=== PATIENT | male | born 1970 ===

== ENCOUNTER 2017-03-05 18:01 | Inpatient (IN) | payer OTHER ==
[2017-03-05 18:08] VITALS: BMI 23.8
--- NOTE | 2017-03-05 20:55 | HP ---
CIWA Score - CIWA Score Nausea/Vomitin-No Nausea/No Vomiting Muscle Tremors: 4-Moderate,w/Arms Extend Anxiety: 4-Mod. Anxious/Guarded Agitation: 4-Moderately Restless Paroxysmal Sweats: 3 Orientation: 0-Oriented Tacttile Disturbances: 0-None Auditory Disturbances: 0-None Visual Disturbances: 0-None Headache: 3-Moderate CIWA-Ar Total Score: 18 Admission ROS BHS - HPI Chief Complaint: C/O ALCOHOL DEPENDENCE WITH WITHDRAWAL SX. SEEKING DETOX TXMENT Allergies/Adverse Reactions: Allergies Allergy/AdvReac Type Severity Reaction Status Date / Time fish derived Allergy Intermediate Swelling Verified 11/24/14 17:01 shellfish derived Allergy Intermediate Swelling Verified 11/24/14 17:01 No Known Drug Allergies Allergy Verified 11/24/14 17:01 seafood Allergy Intermediate Swelling Uncoded 11/24/14 15:58 History of Present Illness: 46 Y.O. MALE WITH OVER 20 YEAR HX/O ALCOHOL DEPENDENCE ADMITTED TO DETOX. REFERRED BY [facility]. DENIES ANY RECENT DETOX/REHAB SERVICES. REPORTS LONGEST CLEAN TIME 1.5 YEARS. RELAPSING 18 MONTHS AGO. HE IS CURRENTLY ON MMTP 110 MG LDM TODAY FROM [facility]. PENDING VERIFICATION Exam Limitations: No Limitations - Ebola screening Have you traveled outside of the country in the last 21 days: No Have you had contact with anyone from an Ebola affected area: No Have you been sick,other than usual withdrawal symptoms: No Do you have a fever: No - Review of Systems Constitutional: Chills, Loss of Appetite, Night Sweats, Changes in sleep EENT: reports: Dental Problems (MISSING TEETH) Respiratory: reports: No Symptoms reported Cardiac: reports: No Symptoms Reported GI: reports: Poor Appetite : reports: No Symptoms Reported Musculoskeletal: reports: No Symptoms Reported Integumentary: reports: No Symptoms Reported Neuro: reports: No Symptoms reported Endocrine: reports: No Symptoms Reported Hematology: reports: No Symptoms Reported Psychiatric: reports: Anxious Other Systems: Reviewed and Negative Patient History - Patient Medical History Hx Anemia: No Hx Asthma: No Hx Chronic Obstructive Pulmonary Disease (COPD): No Hx Cancer: No Hx Cardiac Disorders: No Hx Congestive Heart Failure: No Hx Hypertension: No Hx Hypercholesterolemia: No Hx Pacemaker: No HX Cerebrovascular Accident: No Hx Seizures: No Hx Dementia: No Hx Diabetes: No Hx Gastrointestinal Disorders: No Hx Liver Disease: No Hx Genitourinary Disorders: No Hx Sexually Transmitted Disorders: No Hx Renal Disease (ESRD): No Hx Thyroid Disease: No Hx Human Immunodeficiency Virus (HIV): No Hx Hepatitis C: No Hx Depression: Yes (PROZAC LAST TAKEN 4 MONTHS AGO) Hx Suicide Attempt: No Hx Bipolar Disorder: No Hx Schizophrenia: No - Patient Surgical History Past Surgical History: No Hx Neurologic Surgery: No Hx Cataract Extraction: No Hx Cardiac Surgery: No Hx Lung Surgery: No Hx Breast Surgery: No Hx Breast Biopsy: No Hx Abdominal Surgery: No Hx Appendectomy: No Hx Cholecystectomy: No Hx Genitourinary Surgery: No Hx Section: No Hx Orthopedic Surgery: No Anesthesia Reaction: No - PPD History Previous Implant?: Yes Documented Results: Negative w/o proof Implanted On Prior R Admission?: No Date: 11/26/14 PPD to be Administered?: Yes - Smoking Cessation Smoking history: Current every day smoker Have you smoked in the past 12 months: Yes Aproximately how many cigarettes per day: 40 Cigars Per Day: 0 Hx Chewing Tobacco Use: No Initiated information on smoking cessation: Yes 'Breaking Loose' booklet given: 03/05/17 - Substance & Tx. History Hx Alcohol Use: Yes Hx Substance Use: Yes Substance Use Type: Alcohol, Cocaine, Tranquilizers Hx Substance Use Treatment: Yes ([facility]) - Substances Abused BEER Route: Oral Frequency: Daily Amount used: 2/40 OZ Age of first use: 23 Date of Last Use: 03/05/17 ATIVAN/KLONOPINS Route: Oral Frequency: 1-2 times per week Amount used: 2MG Age of first use: 45 Date of Last Use: 03/04/17 COCAINE Route: Inhalation Frequency: 1-3 times last 30 days Amount used: DIIME Age of first use: 27 Date of Last Use: 03/04/17 Family Disease History - Family Disease History Family Disease History: Diabetes: Father Admission Physical Exam BHS - Vital Signs Vital Signs: Vital Signs - 24 hr 03/05/17 18:03 Temperature 97 F L Pulse Rate 69 Respiratory 20 Rate Blood Pressure 113/77 - Physical General Appearance: Yes: Alcohol on Breath, Tremorous, Anxious HEENTM: Yes: EOMI, Normocephalic, Normal Voice, MARY, Other (POOR DENTITION) Respiratory: Yes: Chest Non-Tender, Lungs Clear, Normal Breath Sounds, No Respiratory Distress, No Accessory Muscle Use Neck: Yes: No masses,lesions,Nodules, Trachea in good position Breast: Yes: Breast Exam Deferred Cardiology: Yes: Regular Rhythm, Regular Rate, S1, S2 Abdominal: Yes: Normal Bowel Sounds, Non Tender, Soft Genitourinary: Yes: Within Normal Limits Back: Yes: Normal Inspection Musculoskeletal: Yes: full range of Motion, Gait Steady Extremities: Yes: Normal Capillary Refill, Normal Range of Motion, Non-Tender, Tremors Neurological: Yes: Fully Oriented, Alert, Motor Strength 5/5 Integumentary: Yes: Normal Color, Dry, Warm Lymphatic: Yes: Within Normal Limits - Diagnostic (1) Methadone maintenance therapy patient Current Visit: Yes Status: Chronic (2) Nicotine dependence Current Visit: Yes Status: Chronic Qualifiers: Nicotine product type: cigarettes (3) Alcohol dependence with uncomplicated withdrawal Current Visit: Yes Status: Chronic (4) Uncomplicated opioid dependence Current Visit: Yes Status: Chronic (5) Sedative, hypnotic or anxiolytic dependence with withdrawal, uncomplicated Current Visit: Yes Status: Chronic (6) Cocaine dependence, uncomplicated Current Visit: Yes Status: Chronic Cleared for Admission [facility] - Detox or Rehab [facility] Level of Care: Medically Managed Detox Regimen/Protocol: Librium [facility] Breath Alcohol Content Breath Alcohol Content: 0.132 Urine Drug Screen - Results Drug Screen Negative: No Urine Drug Screen Results: SHELBI-Cocaine, OPI-Opiates, BZO-Benzodiazepines, MTD- Methadone
[2017-03-05] MEDS ORDERED: IBUPROFEN 400 MG TABLET (FP) PO PRN (21:00)
[2017-03-05] MEDS ORDERED: hydrOXYzine PAMOATE 50 MG CAPSULE (FP) PO PRN (21:00)
[2017-03-05] MEDS ORDERED: MAGNESIUM HYDROX 2400MG/30ML ORAL SUSPENSION 30 ML CUP PO PRN (21:00)
[2017-03-05] MEDS ORDERED: chlordiazePOXIDE HCL 25 MG CAPSULE PO PRN (21:00)
[2017-03-05] MEDS ORDERED: guaiFENesin/D-METHORPHAN HB 10 ML UNIT-DOSE CUPS PO PRN (21:00)
[2017-03-05] MEDS ORDERED: P-EPHED 60MG/TRIPROLIDI 2.5MG TABLET PO PRN (21:00)
[2017-03-05] MEDS ORDERED: MAG HYDROX/AL HYDROX/SIMETH 30 ML UNIT-DOSE CUP PO PRN (21:00)
[2017-03-05] MEDS ORDERED: diphenhydrAMINE HCL 50 MG CAPSULE PO PRN (21:00)
[2017-03-05] MEDS ORDERED: LOPERAMIDE HCL 2 MG CAPSULE PO PRN (21:00)
[2017-03-05] MEDS ORDERED: NICOTINE POLACRILEX 2 MG GUM BC PRN (21:00)
[2017-03-05] MEDS ORDERED: ACETAMINOPHEN 325 MG TABLET (FP) PO PRN (21:00)
[2017-03-05] MEDS ORDERED: MENTHOL/PHENOL 1 EACH UD MM PRN (21:00)
[2017-03-05] MEDS ORDERED: MAGNESIUM CITRATE 300 ML BOTTLE PO PRN (21:00)
[2017-03-05] MEDS: THIAMINE HCL 100 MG TABLET (FP) PO SCH (22:59)
[2017-03-05] MEDS: chlordiazePOXIDE HCL 25 MG CAPSULE PO SCH (22:59)
[2017-03-05] MEDS: NICOTINE 21 MG/24 HOURS TOPICAL PATCH TD SCH (23:05)
[2017-03-05 23:43] LABS: URINE APPEARANCE CLOUDY; URINE BILIRUBIN NEGATIVE (NEGATIVE); URINE BLOOD NEGATIVE (NEGATIVE); URINE COLOR YELLOW; URINE GLUCOSE (UA) NEGATIVE (NEGATIVE); URINE KETONE NEGATIVE (NEGATIVE); URINE LEUK ESTERASE TRACE (NEGATIVE); URINE NITRITE NEGATIVE (NEGATIVE); URINE PROTEIN NEGATIVE (NEGATIVE); URINE UROBILINOGEN NEGATIVE mg/dL (0.2-1.0)
[2017-03-05 23:48] LABS: URINE BACTERIA RARE /hpf (NONE SEEN); URINE MUCUS RARE; URINE RBC 3 /hpf (0-3); URINE WBC 4 /hpf (3-5)
[2017-03-06] MEDS: chlordiazePOXIDE HCL 25 MG CAPSULE PO SCH ×4 (06:08→22:25)
[2017-03-06] MEDS ORDERED: METHADONE HCL 10 MG TABLET PO SCH (09:00)
[2017-03-06] MEDS ORDERED: ZOLPIDEM TARTRATE 5 MG TABLET PO PRN (09:11)
--- NOTE | 2017-03-06 09:53 | CONSULT ---
[facility] - Data Date of interview: 03/06/17 Admission source: [facility] Identifying data: This is 46 years old male with no psychiatric hospitalization history intoxicayed with: Alcohol, Cocaine, Methadone, Opioids, Xanax and Nicotine Substance Abuse History: - Smoking Cessation. Smoking history: Current every day smoker. Have you smoked in the past 12 months: Yes. Aproximately how many cigarettes per day: 40. Cigars Per Day: 0. Hx Chewing Tobacco Use: No. Initiated information on smoking cessation: Yes. 'Breaking Loose' booklet given : 03/05/17. - Substance & Tx. History. Hx Alcohol Use: Yes. Hx Substance Use : Yes. Substance Use Type: Alcohol, Cocaine, Tranquilizers. Hx Substance Use Treatment: Yes ([facility]). - Substances Abused. BEER. Route: Oral. Frequency: Daily. Amount used: 2/40 OZ. Age of first use: 23. Date of Last Use: 03/05/17. ATIVAN/KLONOPINS. Route: Oral. Frequency: 1-2 times per week. Amount used: 2MG. Age of first use: 45. Date of Last Use: 03/04/17. * * COCAINE. Route: Inhalation. Frequency: 1-3 times last 30 days. Amount used : DIIME. Age of first use: 27. Date of Last Use: 03/04/17 Medical History: Denies significant medical problem Psychiatric History: Patient reprots history of MDD, reports taking prior to admission: Prozac 20mg poqd. Ambien 10mg po qhs Physical/Sexual Abuse/Trauma History: Denies Additional Comment: Prozac 20mg poqd. Ambien 10mg po qhs Mental Status Exam - Mental Status Exam Alert and Oriented to: Person Cognitive Function: Fair Patient Appearance: Unkempt Mood: Sad Affect: Flat Patient Behavior: Sedated Speech Pattern: Delayed Voice Loudness: Normal Thought Process: Circumstantial Thought Disorder: Being Controlled Hallucinations: Denies Suicidal Ideation: Denies Homicidal Ideation: Denies Insight/Judgement: Fair Sleep: Difficulty falling asleep Appetite: Fair Muscle strength/Tone: Normal Gait/Station: Normal Additional Comments: Prozac 20mg poqd. Ambien 10mg po qhs Psychiatric Findings - Problem List ([place] 1, 2,3) (1) Alcohol dependence with uncomplicated withdrawal Current Visit: Yes Status: Chronic (2) Cocaine dependence, uncomplicated Current Visit: Yes Status: Chronic (3) Methadone maintenance therapy patient Current Visit: Yes Status: Chronic (4) Nicotine dependence Current Visit: Yes Status: Chronic Qualifiers: Nicotine product type: cigarettes (5) Sedative, hypnotic or anxiolytic dependence with withdrawal, uncomplicated Current Visit: Yes Status: Chronic (6) Alcohol dependence Current Visit: No Status: Chronic (7) Opioid dependence on agonist therapy Current Visit: No Status: Chronic (8) Drug-induced mood disorder Current Visit: Yes Status: Acute - Initial Treatment Plan Initial Treatment Plan: Prozac 20mg poqd. Ambien 10mg po qhs
[2017-03-06 10:00] LABS: MCH 29.6 pg (25.7-33.7); MCHC 32.1 g/dl (32.0-35.9); MEAN CELL VOLUME 92.2 fl (80-96); MEAN PLT VOLUME 9.4 fl (7.5-11.1); PLATELET COUNT 225 K/MM3 (134-434); RDW 13.8 % (11.9-15.9); WHITE BLOOD COUNT 8.3 K/mm3 (4.0-10.0)
[2017-03-06] MEDS ORDERED: METHADONE HCL 10 MG TABLET ONE (10:01)
[2017-03-06] MEDS ORDERED: METHADONE HCL 40 MG DISPERSABLE TABLET ONE (10:01)
--- NOTE | 2017-03-06 10:45 | EKG ---
Test Reason : Blood Pressure : / mmHG Vent. Rate : 062 BPM Atrial Rate : 062 BPM P-R Int : 172 ms QRS Dur : 098 ms QT Int : 432 ms P-R-T Axes : 045 052 067 degrees QTc Int : 438 ms NORMAL SINUS RHYTHM NORMAL ECG NO PREVIOUS ECGS AVAILABLE Confirmed by MARKY ARZOLA, MARÍA ELENA ([id number]) on 03/06/2017 10:44:43 AM Referred By: Nick Jones Confirmed By:MARÍA ELENA NEGRO MD
[2017-03-06] MEDS: PRENATAL VITAMINS W/ FOLIC ACID TABLET (FP) PO SCH (10:51)
[2017-03-06] MEDS: NICOTINE 21 MG/24 HOURS TOPICAL PATCH TD SCH (10:51)
[2017-03-06] MEDS: FLUoxetine HCL 20 MG CAPSULE (FP) PO SCH (10:51)
[2017-03-06] MEDS: METHADONE 80 MG, METHADONE 30 MG PO SCH (10:52)
[2017-03-06 10:53] LABS: ALBUMIN 3.3 g/dl (3.4-5.0); ALK PHOS 61 U/L (45-117); ANION GAP 9 (8-16); CALCIUM 8.3 mg/dL (8.5-10.1); CO2 30 mmol/L (21-32); CREATININE 0.6 mg/dL (0.7-1.3); GLUCOSE,RANDOM 88 mg/dL (74-106); SGOT/AST 35 U/L (15-37); SGPT/ALT 33 U/L (12-78); TOT PROT 6.4 g/dl (6.4-8.2)
--- NOTE | 2017-03-06 11:35 | PN ---
S CIWA - CIWA Score Nausea/Vomitin Muscle Tremors: 3 Anxiety: 3 Agitation: 2 Paroxysmal Sweats: 1-Minimal Palms Moist Orientation: 0-Oriented Tacttile Disturbances: 1-Very Mild Itch/Numbness Auditory Disturbances: 1-Very Mild Visual Disturbances: 1-Very Mild Sensitivity Headache: 2-Mild CIWA-Ar Total Score: 17 BHS Progress Note (SOAP) Subjective: ALERT,IRRITABLE,ANXIOUS,INTERRUPTED SLEEP,TREMOR,PAIN IN THE BODY AND BACK Objective: 03/06/17 11:33 Vital Signs Temperature 98.0 F 03/06/17 06:52 Pulse Rate 54 L 03/06/17 06:52 Respiratory Rate 20 03/06/17 06:52 Blood Pressure 145/74 03/06/17 06:52 O2 Sat by Pulse Oximetry (%) EKG NSR,NORMAL ECG Laboratory Last Values WBC 8.3 K/mm3 (4.0-10.0) 03/06/17 07:00 RBC 4.23 M/mm3 (4.00-5.60) 03/06/17 07:00 Hgb 12.5 GM/dL (11.7-16.9) 03/06/17 07:00 Hct 38.9 % (35.4-49) 03/06/17 07:00 MCV 92.2 fl (80-96) 03/06/17 07:00 MCH 29.6 pg (25.7-33.7) 03/06/17 07:00 MCHC 32.1 g/dl (32.0-35.9) 03/06/17 07:00 RDW 13.8 % (11.9-15.9) 03/06/17 07:00 Plt Count 225 K/MM3 (134-434) 03/06/17 07:00 MPV 9.4 fl (7.5-11.1) 03/06/17 07:00 Sodium 142 mmol/L (136-145) 03/06/17 07:00 Potassium 4.3 mmol/L (3.5-5.1) 03/06/17 07:00 Chloride 103 mmol/L (98-107) 03/06/17 07:00 Carbon Dioxide 30 mmol/L (21-32) 03/06/17 07:00 Anion Gap 9 (8-16) 03/06/17 07:00 BUN 18 mg/dL (7-18) D 03/06/17 07:00 Creatinine 0.6 mg/dL (0.7-1.3) L 03/06/17 07:00 Creat Clearance w eGFR > 60 (>60) 03/06/17 07:00 Random Glucose 88 mg/dL (74-106) 03/06/17 07:00 Calcium 8.3 mg/dL (8.5-10.1) L 03/06/17 07:00 Total Bilirubin 1.0 mg/dL (0.2-1.0) D 03/06/17 07:00 AST 35 U/L (15-37) D 03/06/17 07:00 ALT 33 U/L (12-78) 03/06/17 07:00 Alkaline Phosphatase 61 U/L (45-117) 03/06/17 07:00 Total Protein 6.4 g/dl (6.4-8.2) 03/06/17 07:00 Albumin 3.3 g/dl (3.4-5.0) L 03/06/17 07:00 Urine Color Yellow 03/05/17 23:00 Urine Appearance Cloudy 03/05/17 23:00 Urine pH 5.0 (5.0-8.0) 03/05/17 23:00 Ur Specific Colon >= 1.030 (1.005-1.025) H 03/05/17 23:00 Urine Protein Negative (NEGATIVE) 03/05/17 23:00 Urine Glucose (UA) Negative (NEGATIVE) 03/05/17 23:00 Urine Ketones Negative (NEGATIVE) 03/05/17 23:00 Urine Blood Negative (NEGATIVE) 03/05/17 23:00 Urine Nitrite Negative (NEGATIVE) 03/05/17 23:00 Urine Bilirubin Negative (NEGATIVE) 03/05/17 23:00 Urine Urobilinogen Negative mg/dL (0.2-1.0) 03/05/17 23:00 Urine RBC 3 /hpf (0-3) 03/05/17 23:00 Urine WBC 4 /hpf (3-5) 03/05/17 23:00 Ur Epithelial Cells Many /hpf (FEW) 03/05/17 23:00 Urine Bacteria Rare /hpf (NONE SEEN) 03/05/17 23:00 Urine Mucus Rare 03/05/17 23:00 03/06/17 11:34 LABS PENDING Assessment: 03/06/17 11:34 WITHDRAWAL SYMPTOM Plan: CONTINUE DETOX
[2017-03-06] MEDS ORDERED: FLU VACCINE QUAD 60 MCG/0.5 ML (MDV 17-18) IM ONE (12:00)
[2017-03-06 12:21] LABS: HIV 1 & 2 AB NEGATIVE; HIV 1 AGp24 NEGATIVE
[2017-03-06] MEDS: THIAMINE HCL 100 MG TABLET (FP) PO SCH (22:24)
[2017-03-06] MEDS: ZOLPIDEM TARTRATE 10 MG TABLET (PARK CARE ONLY) PO PRN (22:26)
[2017-03-07] MEDS ORDERED: METHADONE HCL 40 MG DISPERSABLE TABLET ONE (04:37)
[2017-03-07] MEDS ORDERED: METHADONE HCL 10 MG TABLET ONE (04:38)
[2017-03-07] MEDS: chlordiazePOXIDE HCL 25 MG CAPSULE PO SCH ×3 (05:25→17:23)
[2017-03-07] MEDS: METHADONE 80 MG, METHADONE 30 MG PO SCH (05:25)
[2017-03-07] MEDS: FLUoxetine HCL 20 MG CAPSULE (FP) PO SCH (10:34)
[2017-03-07] MEDS: PRENATAL VITAMINS W/ FOLIC ACID TABLET (FP) PO SCH (10:34)
[2017-03-07] MEDS: NICOTINE 21 MG/24 HOURS TOPICAL PATCH TD SCH (10:34)
--- NOTE | 2017-03-07 11:47 | PN ---
S CIWA - CIWA Score Nausea/Vomitin Muscle Tremors: 3 Anxiety: 3 Agitation: 2 Paroxysmal Sweats: 1-Minimal Palms Moist Orientation: 0-Oriented Tacttile Disturbances: 1-Very Mild Itch/Numbness Auditory Disturbances: 0-None Visual Disturbances: 0-None Headache: 2-Mild CIWA-Ar Total Score: 15 S Progress Note (SOAP) Subjective: alert,irritable,anxious,interrupted sleep Objective: 03/07/17 11:45 Vital Signs Temperature 97.3 F L 03/07/17 06:00 Pulse Rate 46 L 03/07/17 06:00 Respiratory Rate 16 03/07/17 06:00 Blood Pressure 144/92 03/07/17 06:00 O2 Sat by Pulse Oximetry (%) 03/07/17 11:46 Vital Signs Temperature 97.3 F L 03/07/17 06:00 Pulse Rate 46 L 03/07/17 06:00 Respiratory Rate 16 03/07/17 06:00 Blood Pressure 144/92 03/07/17 06:00 O2 Sat by Pulse Oximetry (%) Laboratory Last Values WBC 8.3 K/mm3 (4.0-10.0) 03/06/17 07:00 RBC 4.23 M/mm3 (4.00-5.60) 03/06/17 07:00 Hgb 12.5 GM/dL (11.7-16.9) 03/06/17 07:00 Hct 38.9 % (35.4-49) 03/06/17 07:00 MCV 92.2 fl (80-96) 03/06/17 07:00 MCH 29.6 pg (25.7-33.7) 03/06/17 07:00 MCHC 32.1 g/dl (32.0-35.9) 03/06/17 07:00 RDW 13.8 % (11.9-15.9) 03/06/17 07:00 Plt Count 225 K/MM3 (134-434) 03/06/17 07:00 MPV 9.4 fl (7.5-11.1) 03/06/17 07:00 Sodium 142 mmol/L (136-145) 03/06/17 07:00 Potassium 4.3 mmol/L (3.5-5.1) 03/06/17 07:00 Chloride 103 mmol/L (98-107) 03/06/17 07:00 Carbon Dioxide 30 mmol/L (21-32) 03/06/17 07:00 Anion Gap 9 (8-16) 03/06/17 07:00 BUN 18 mg/dL (7-18) D 03/06/17 07:00 Creatinine 0.6 mg/dL (0.7-1.3) L 03/06/17 07:00 Creat Clearance w eGFR > 60 (>60) 03/06/17 07:00 Random Glucose 88 mg/dL (74-106) 03/06/17 07:00 Calcium 8.3 mg/dL (8.5-10.1) L 03/06/17 07:00 Total Bilirubin 1.0 mg/dL (0.2-1.0) D 03/06/17 07:00 AST 35 U/L (15-37) D 03/06/17 07:00 ALT 33 U/L (12-78) 03/06/17 07:00 Alkaline Phosphatase 61 U/L (45-117) 03/06/17 07:00 Total Protein 6.4 g/dl (6.4-8.2) 03/06/17 07:00 Albumin 3.3 g/dl (3.4-5.0) L 03/06/17 07:00 Urine Color Yellow 03/05/17 23:00 Urine Appearance Cloudy 03/05/17 23:00 Urine pH 5.0 (5.0-8.0) 03/05/17 23:00 Ur Specific [place] >= 1.030 (1.005-1.025) H 03/05/17 23:00 Urine Protein Negative (NEGATIVE) 03/05/17 23:00 Urine Glucose (UA) Negative (NEGATIVE) 03/05/17 23:00 Urine Ketones Negative (NEGATIVE) 03/05/17 23:00 Urine Blood Negative (NEGATIVE) 03/05/17 23:00 Urine Nitrite Negative (NEGATIVE) 03/05/17 23:00 Urine Bilirubin Negative (NEGATIVE) 03/05/17 23:00 Urine Urobilinogen Negative mg/dL (0.2-1.0) 03/05/17 23:00 Urine RBC 3 /hpf (0-3) 03/05/17 23:00 Urine WBC 4 /hpf (3-5) 03/05/17 23:00 Ur Epithelial Cells Many /hpf (FEW) 03/05/17 23:00 Urine Bacteria Rare /hpf (NONE SEEN) 03/05/17 23:00 Urine Mucus Rare 03/05/17 23:00 RPR Titer Reactive 1:2 (NONREACTIVE) H 03/06/17 07:00 T.pallidum Ab (MHA) Previously reactive (NONREACTIVE) 03/06/17 07:00 HIV 1&2 Antibody Screen Negative 03/06/17 07:00 HIV P24 Antigen Negative 03/06/17 07:00 previously treated for syphilis before Assessment: 03/07/17 11:47 withdrawal symptom Plan: continue detox
[2017-03-07] MEDS: chlordiazePOXIDE 5 MG CAPSULE PO SCH (22:09)
[2017-03-07] MEDS: ZOLPIDEM TARTRATE 10 MG TABLET (PARK CARE ONLY) PO PRN (22:10)
[2017-03-07] MEDS: THIAMINE HCL 100 MG TABLET (FP) PO SCH (22:11)
[2017-03-08] MEDS ORDERED: METHADONE HCL 40 MG DISPERSABLE TABLET ONE (04:26)
[2017-03-08] MEDS ORDERED: METHADONE HCL 10 MG TABLET ONE (04:26)
[2017-03-08] MEDS: METHADONE 80 MG, METHADONE 30 MG PO SCH (05:38)
[2017-03-08] MEDS: chlordiazePOXIDE 5 MG CAPSULE PO SCH ×3 (05:38→17:55)
[2017-03-08] MEDS: PRENATAL VITAMINS W/ FOLIC ACID TABLET (FP) PO SCH (10:44)
[2017-03-08] MEDS: FLUoxetine HCL 20 MG CAPSULE (FP) PO SCH (10:44)
[2017-03-08] MEDS: NICOTINE 21 MG/24 HOURS TOPICAL PATCH TD SCH (10:45)
--- NOTE | 2017-03-08 13:13 | PN ---
S Progress Note (SOAP) Subjective: ALERT,IRRITABLE,ANXIOUS,INTERRUPTED SLEEP Objective: 03/08/17 13:13 Vital Signs Temperature 97.9 F 03/08/17 10:50 Pulse Rate 64 03/08/17 10:50 Respiratory Rate 18 03/08/17 10:50 Blood Pressure 96/60 03/08/17 10:50 O2 Sat by Pulse Oximetry (%) Assessment: 03/08/17 13:13 WITHDRAWAL SYMPTOM Plan: CONTINUE DETOX,DISCHARGE IN AM
[2017-03-08] MEDS: chlordiazePOXIDE HCL 10 MG CAPSULE PO SCH (22:46)
[2017-03-08] MEDS: ZOLPIDEM TARTRATE 10 MG TABLET (PARK CARE ONLY) PO PRN (22:46)
[2017-03-08] MEDS: THIAMINE HCL 100 MG TABLET (FP) PO SCH (22:46)
[2017-03-08 23:24] VITALS: TEMP 98.4
[2017-03-09] MEDS ORDERED: METHADONE HCL 40 MG DISPERSABLE TABLET ONE (05:33)
[2017-03-09] MEDS ORDERED: METHADONE HCL 10 MG TABLET ONE (05:34)
[2017-03-09] MEDS: METHADONE 80 MG, METHADONE 30 MG PO SCH (06:07)
[2017-03-09] MEDS: chlordiazePOXIDE HCL 10 MG CAPSULE PO SCH (06:07)
[2017-03-09 06:39] VITALS: BP 96/67; PULSE 57
--- NOTE | 2017-03-09 09:37 | DS ---
[facility] Detox Discharge Summary Admission Date: 03/05/17 Discharge Date: 03/09/17 - History Present History: Alcohol Dependence, Cocaine Dependence, Sedative Dependence, MMTP Pertinent Past History: nicotine dependence - Physical Exam Results Vital Signs: Vital Signs Temperature 98.4 F 03/09/17 06:38 Pulse Rate 57 L 03/09/17 06:38 Respiratory Rate 16 03/09/17 06:38 Blood Pressure 96/67 03/09/17 06:38 O2 Sat by Pulse Oximetry (%) Pertinent Admission Physical Exam Findings: withdrawal symptom - Treatment Hospital Course: Detox Protocol Followed, Detoxed Safely, Responded well, Discharged Condition Good Patient has Accepted a Rehab Referral to: declined - Medication Discharge Medications: Ambulatory Orders Zolpidem Tartrate [Ambien] 10 mg PO HS 11/24/14 Fluoxetine HCl [Prozac] 20 mg PO DAILY #30 capsule 11/25/14 Thiamine HCl [Vitamin B1 -] 100 mg PO HS #30 tablet 11/28/14 Fluoxetine HCl [Prozac -] 20 mg PO DAILY #30 cap 03/06/17 Zolpidem Tartrate [Ambien] 10 mg PO HS PRN #14 tablet MDD 10 03/06/17 - Diagnosis (1) Alcohol dependence with uncomplicated withdrawal Current Visit: Yes Status: Chronic (2) Drug-induced mood disorder Current Visit: Yes Status: Acute (3) Cocaine dependence, uncomplicated Current Visit: Yes Status: Chronic (4) Methadone maintenance therapy patient Current Visit: Yes Status: Chronic (5) Sedative, hypnotic or anxiolytic dependence with withdrawal, uncomplicated Current Visit: Yes Status: Chronic (6) Uncomplicated opioid dependence Current Visit: Yes Status: Chronic - AMA Did Patient Leave Against Medical Advice: No
[2017-03-09] MEDS: PRENATAL VITAMINS W/ FOLIC ACID TABLET (FP) PO SCH (09:46)
[2017-03-09] MEDS: FLUoxetine HCL 20 MG CAPSULE (FP) PO SCH (09:46)
== END 2017-03-09 09:58 | disposition home or self-care (01) | DRG 773 ==
LOC: YASAS 18:01 → Y6N 21:24
PROVIDERS: ADMIT Internal Medicine; ATTEND Internal Medicine
PROC: HZ2ZZZZ Detoxification Services for Substance Abuse Treatment (ICD-10-PCS; principal; 2017-03-05)
DX: F10.230 Alcohol dependence with withdrawal, uncomplicated (principal); F11.20 Opioid dependence, uncomplicated; F13.230 Sedative, hypnotic or anxiolytic dependence with withdrawal, uncomplicated; F14.20 Cocaine dependence, uncomplicated; F17.210 Nicotine dependence, cigarettes, uncomplicated; F19.24 Other psychoactive substance dependence with psychoactive substance-induced mood disorder; Z87.438 Personal history of other diseases of male genital organs; Z91.013 Allergy to seafood
CPT/HCPCS: 36415; 80053; 81003; 81015; 85027; 86593; 86780; 87389; 90688; 93005; 93010; G0008